=== PATIENT | male | born 1965 | race Caucasian/White ===

== ENCOUNTER 2023-08-24 10:27 | Day surgery (SDC) | payer BC, SELFPAY ==
[2023-08-24] VITALS (14 sets, daily range): BP systolic 103–142; BP diastolic 46–83; PULSE 55–81; RESP 12–23; TEMP 36.1–36.4; O2SAT 94–99; BMI 25.2
[2023-08-24] MEDS: LACTATED RINGERS 1000 ML 1,000 ML 100 ML IV (11:00)
[2023-08-24] MEDS: SODIUM CHLORIDE 0.9 % (FLUSH) 10 ML SYRINGE IVF (11:00)
[2023-08-24] MEDS: CEFAZOLIN 2 GM INJ IVP (11:56)
--- NOTE | 2023-08-24 12:07 | W.ANESCHARGE ---
Anesthesia Charges Start Date/Time Anesthesia Start Date: 08/24/23 Anesthesia Start Time: 11:45 Stop Date/Time Anesthesia Stop Date: 08/24/23 Anesthesia Stop Time: 13:05
[2023-08-24] MEDS: BUPIVACAINE 0.25% 30 ML 20 ML INJECTION (12:45)
--- NOTE | 2023-08-24 13:02 | P.GSOP_ITS ---
Operative Note Date of procedure: 08/24/23 Pre-op diagnosis: Right inguinal hernia Post-op diagnosis: Same Type of Procedure: Laparoscopic right inguinal hernia repair with mesh Indications: The patient is a 57-year-old male with a right inguinal hernia which has become increasingly symptomatic for him. After discussion of options, he elected to proceed with repair. Procedure Description: After discussing the risks and benefits of the procedure, the patient signed informed consent.? The operative site was marked and the patient was brought to the operating room and placed on the operating table in supine position.? Care was taken to pad the patient's pressure points.?? The patient was then intubated by anesthesia.?? The operative site was then prepped and draped in the usual sterile fashion.? A time-out was then performed. A curvilinear incision was made below the umbilicus. Dissection was carried down to subcutaneous tissue until the anterior rectus fascia was encountered. This was incised off the midline. The rectus muscle fibers were then retracted exposing the posterior fascia. A port with a dissecting balloon was then introduced into the pre-preperitoneal space. This was inflated under direct vision. The balloon was deflated, removed, and a 10 mm working port was placed. The space was insufflated and a 10 mm 30-degree scope was then advanced into the space. Two 5 mm ports were placed in the midline under direct vision. Dissection began on the right side. Dre's ligament and the pubic bone were exposed medially. Following this, dissection was carried out laterally. A direct defect was noted. This was reduced. No indirect hernia was noted. The perit oneum was then dissected free from the cord structures using blunt dissection. No cord lipoma was visible. Once sufficient space was created, a piece of large Bard 3DMax mesh for the right side was obtained and placed into the abdomen. This was positioned with the marker pointed medially. A Tacker was used to attach the mesh medially at Dre's ligament, 1 tack superomedially and 1 tack laterally with care to avoid the epigastric vessels and stay above the inguinal ligament. Once this was completed, the preperitoneal space desufflated under direct vision to ensure the mesh laid flat. 10 mL of 0.5% Marcaine were instilled into the preperitoneal space through a port. The ports were removed. The fascia from the infraumbilical port was closed with 0 Vicryl. The skin incisions were closed with absorbable subcuticular suture. Sterile dressings were then applied. The scrotum was examined to ensure that both testicles were down. Instrument sponge and needle counts were correct at the end of the case. ? The patient was then woken and transported to the recovery area in stable condition. ? The patient tolerated the procedure well. Findings: Direct right inguinal hernia. Anesthesia: GETA Surgeon: Rosalee Sewell MD Estimated blood loss (mL): 5 Condition: stable Disposition: PACU
--- NOTE | 2023-08-24 13:36 | SUR.PHASEI ---
patient met discharge criteria per anesthesia
--- NOTE | 2023-08-24 19:18 | PC.NURSE ---
Patient's called M/S with concern about incision site. states after surgery, umbilicus incision was bleeding and a 4x4 was placed in SDS. Incision appears to be bleeding at this time again, has not saturated 4x4. Updated Dr. Almodovar and recommendations received. Explained to to place pressure dressing using an robbie wrap for 30 minutes and after 30 minutes to leave dressing in place but remove robbie. Per surgeon, if dressing is needing to be changed a few times in an hour then patient should return. understands, will call back with any further questions/concerns.
== END 2023-08-24 14:58 | disposition home or self-care (01) ==
PROVIDERS: PCP Family Medicine; Visit Provider Surgery
PROC: (CPT 49650; principal; 2023-08-24 12:00)
DX: K40.90 Unilateral inguinal hernia, without obstruction or gangrene, not specified as recurrent (principal)
CPT/HCPCS: 49650; 00860; C1781; J0330; J0665; J0690; J2250; J2704; J3010; J7120